=== PATIENT | female | born 1960 | race Caucasian/White ===

== ENCOUNTER 2016-06-01 11:02 | Inpatient (IN) | payer MEDICAID, OTHER ==
[~2016-06-01] VITALS: Ht 134.6 cm; Wt 92.0 kg
[~2016-06-01 11:02] MED LIST: ASPI1TAB PO; ATOR1TAB21 PO; BUPIVACAINE/EPIN 0.25% 30 ML VIAL As Ordered ONE; DEPA1TAB3 PO; DIVA125C5 PO; FERR325T3 PO; GLIP-162 PO; GLIP5TAB8 PO; IRON65TA PO; LOSA25TA8 PO; META0.52 PO; METF-415 PO; METF1000 PO; METO25TAB PO; MIRA3350 PO; PLAV75TA38 PO; VITA-121 PO; VITA-130 PO; VITA50003 PO; ZANA4TAB PO; ZONI50CA3 PO; ceFAZolin 1GM INJ (J0690) As Ordered ONE
[2016-06-01] MEDS ORDERED: LR 1,000 ML IV SCH ×2 (11:45→15:45)
[2016-06-01] MEDS ORDERED: BUPIVACAINE/EPIN 0.25% 30 ML VIAL XX ONE (11:50)
[2016-06-01] MEDS ORDERED: ceFAZolin 1GM INJ (J0690) XX ONE (11:50)
[2016-06-01] MEDS ORDERED: PROPOFOL 200 MG/20 ML VIAL As Ordered ONE ×2 (11:55→14:37)
[2016-06-01] MEDS ORDERED: LIDOCAINE 2% INJ 100 MG/5 ML SDV (FOR ANES.) As Ordered ONE (11:55)
[2016-06-01] MEDS ORDERED: MIDAZOLAM INJ 2 MG/2 ML VIAL (J2250) As Ordered ONE (12:44)
[2016-06-01] MEDS ORDERED: fentaNYL 100 MCG/2 ML INJECTION (J3010) As Ordered ONE (12:44)
[2016-06-01] MEDS ORDERED: PHENYLephrine HCL 500 MCG/5 ML (100MCG/ML) SYRINGE (J2370) As Ordered ONE (14:10)
[2016-06-01] MEDS ORDERED: ePHEDrine SULFATE 25 MG/5 ML(5MG/ML) SYRINGE As Ordered ONE (14:10)
[2016-06-01] MEDS ORDERED: ONDANSETRON 4MG/2ML VIAL (J2405) As Ordered ONE (14:19)
[2016-06-01] MEDS ORDERED: ONDANSETRON 4MG/2ML VIAL (J2405) IV PRN (15:45)
[2016-06-01] MEDS ORDERED: fentaNYL 100 MCG/2 ML INJECTION (J3010) IV PRN (15:45)
[2016-06-01] MEDS ORDERED: PERCOCET 5MG/325MG TAB As Ordered ONE (16:19)
[2016-06-01] MEDS ORDERED: PERCOCET 5MG/325MG TAB PO PRN (16:30)
[2016-06-01] MEDS ORDERED: PROMETHAZINE INJ 25 MG/ML VIAL (J2550) IV PRN (16:30)
--- NOTE | 2016-06-01 16:38 | REP ---
Partial right ankle series: Four views. Intraoperative. History: Fracture. 8 seconds of fluoroscopy time is reported. Findings: A sequence of four fluoroscopically obtained intraprocedural spot radiographs of the right ankle document screw plate fixation of the distal fibular fracture. Ankle mortise appears intact. Signed by Juaquin Shaver MD 06/01/2016 05:37 P
[2016-06-01 17:00] VITALS: BP 143/79
[2016-06-01 17:30] VITALS: BP 126/82
[2016-06-01] MEDS ORDERED: metFORMIN (GLUCOPHAGE) 500 MG TAB PO SCH (18:00)
[2016-06-01] MEDS: D5W/LR 1,000 ML IV SCH (18:08)
[2016-06-01] MEDS: HYDROmorphone HCL 1 MG/ML SYRINGE (J1170) IV PRN ×2 (18:08→22:28)
[2016-06-01 18:30] VITALS: BP 137/66
[2016-06-01 19:30] VITALS: BP 120/75
[2016-06-01 20:30] VITALS: BP 118/67
[2016-06-01] MEDS ORDERED: GLIP-162 PO (20:33)
[2016-06-01] MEDS ORDERED: NAME5TAB13 PO (20:35)
[2016-06-01] MEDS ORDERED: SIMVASTATIN 10 MG TAB PO SCH (21:00)
[2016-06-01] MEDS ORDERED: glipiZIDE *XL* 2.5MG TABLET PO SCH (21:00)
[2016-06-01] MEDS: METOPROLOL TART 25 MG TABLET PO SCH (21:02)
[2016-06-01] MEDS: PERCOCET 5MG/325MG TAB PO PRN (21:03)
[2016-06-01 21:30] VITALS: BP 120/68
[2016-06-01] MEDS ORDERED: LOVA20TA2 PO (21:41)
--- NOTE | 2016-06-01 23:24 | RO ---
DATE OF PROCEDURE: 06/01/2016 PREOPERATIVE DIAGNOSIS: Right fibula fracture with wide mortise. POSTOPERATIVE DIAGNOSIS: Right fibula fracture with wide mortise. PROCEDURE PERFORMED: Open reduction internal fixation of right fibula fracture. SURGEON: Dr. John Galeana ANESTHESIA: Spinal. ESTIMATED BLOOD LOSS: Less than 50 mL. No tourniquet was inflated COMPLICATIONS: None. COMPONENTS USED: Include Synthes one-third tubular plate with appropriate cortical and cancellus screws, 7-hole plate utilized. INDICATIONS: Bia is a 55-year-old female who had an ankle fracture approximately 1 month ago. The mortise was not appreciated to be widened in the office. However, the patient did indicate that she stumbled hard on the ankle about a week after being seen and had very severe pain. When she presented for her followup visit, we did appreciate a significantly widened mortise and elected for operative fixation, therefore, of the fibula fracture and evaluation of the syndesmotic ligament intraoperatively. Consent reviewed in detail with the patient including a michelle discussion of the procedure proposed, alternatives including doing nothing, the risks including, but not limited to, pain, failure, stiffness, infection, need for more surgery, arthritis and other issues. The patient agreed to proceed. DESCRIPTION OF PROCEDURE: Identified in the holding area, site, side verified, brought to the operating room. Once anesthesia was administered, prepped and draped in the usual fashion for exposure of the right lower extremity. Tourniquet was not inflated for this case. Incision was outlined with a marking pen over the fibula, infiltrated with 0.25% Marcaine with epinephrine. 12 cm incision was made with a 10 blade knife, developed down through skin and subcuticular tissues to the lateral aspect of the fibula. The fracture was exposed. I utilized C-arm and placed the ankle under stress and the fracture was still mobile at that point and the mortise was quite unstable at that point. Next, I was able to reduce the mortise. Next, I opened the fracture with a panchal elevator, and this allowed curetting of the fracture edges and irrigation. Next, the fracture was anatomically reduced using the lobster claw reduction clamps. I selected the 7-hole one-third tubular plate and this was installed proximally with cortical screws and distally using cancellous screws in a triangular orientation. Next, once that was accomplished, I did place the ankle through stress and the mortise seemed to be stable under stress views. The syndesmosis did not open under stress views. Next, irrigation was accomplished. The wound was closed with interrupted buried stitch and radha. Sterile dressing applied, cast applied, patient moved to the recovery room in good condition.
[2016-06-02 01:30] VITALS: BP 131/75
[2016-06-02] MEDS: PERCOCET 5MG/325MG TAB PO PRN ×5 (02:05→22:48)
[2016-06-02] MEDS: D5W/LR 1,000 ML IV SCH ×3 (02:08→22:57)
[2016-06-02] MEDS ORDERED: PERC5TAB6 PO (05:49)
[2016-06-02] MEDS ORDERED: ASPI325T PO (05:49)
[2016-06-02 06:00] VITALS: BP 110/63
[2016-06-02] MEDS: METOPROLOL TART 25 MG TABLET PO SCH ×2 (08:37→19:51)
[2016-06-02] MEDS: ASPIRIN 81 MG CHEW TABLET PO SCH (08:37)
[2016-06-02] MEDS: DIVALPROEX 500 MG TAB PO SCH (08:38)
[2016-06-02] MEDS ORDERED: MEMANTINE 5MG TABLET (NAMENDA) PO SCH (09:00)
--- NOTE | 2016-06-02 09:28 | REP ---
Right ankle series: Four views. History: Check placement. Comparison right ankle radiographs are from April 27, 2016. Findings: A screw plate fixation device is seen in the distal fibula. Ankle mortise is intact. Alignment is normal. Heel spurs are noted and there is overlying soft tissue swelling. Lateral skin radha are noted. Today's views are obtained through overlying cast material. Impression: Status post open reduction internal fixation right ankle. Signed by Juaquin Shaver MD 06/02/2016 10:30 A
[2016-06-02 10:00] VITALS: BP 107/62
[2016-06-02 14:00] VITALS: BP 110/73
[2016-06-02] MEDS: HYDROmorphone HCL 1 MG/ML SYRINGE (J1170) IV PRN (17:52)
[2016-06-02 18:00] VITALS: BP 117/62
[2016-06-02 22:00] VITALS: BP 149/78
[2016-06-02] MEDS ORDERED: diphenhydrAMINE 25 MG CAP PO PRN (23:00)
[2016-06-03 06:00] VITALS: BP 125/59
[2016-06-03] MEDS: ASPIRIN 81 MG CHEW TABLET PO SCH (08:14)
[2016-06-03] MEDS: DIVALPROEX 500 MG TAB PO SCH (08:14)
[2016-06-03 08:15] VITALS: BP 125/59
[2016-06-03] MEDS: METOPROLOL TART 25 MG TABLET PO SCH (08:15)
[2016-06-03] MEDS: PERCOCET 5MG/325MG TAB PO PRN ×2 (08:15→12:21)
--- NOTE | 2016-06-08 16:20 | DSES ---
DATE OF ADMISSION: 06/02/2016 DATE OF DISCHARGE: 06/03/2016 ADMITTING DIAGNOSIS: Right fibula fracture with widened mortise. OTHER DIAGNOSES: 1. Diabetes. 2. Hyperlipidemia. 3. Hypertension. 4. Migraines. 5. Aneurysm. DISCHARGE DIAGNOSIS: Open reduction internal fixation of a right fibula fracture. HISTORY OF PRESENT ILLNESS: The patient is a pleasant female who sustained a right-sided fibula fracture approximately one month ago. At initial visit in office, she did not seem to have a widened mortise but states that a week after initial injury she reinjured ankle. Subsequent x-rays did show the right fibula fracture with a widened mortise. The patient has consented for open reduction internal fixation with Dr. Galeana. She was admitted on the day of surgery for this elective procedure. OPERATION PERFORMED: Open reduction internal fixation of a right fibula fracture. HOSPITAL COURSE: The patient underwent an open reduction internal fixation of a right fibula fracture under spinal anesthesia. Surgery was uneventful and her hospital course was without complication. She will continue her preoperative medications and diet. She will be nonweightbearing. The patient will followup in our office in 10-14 days for a cast removal, wound check, and staple removal. She is encouraged to contact our office sooner if there is any increased pain, drainage, numbness and tingling in her extremities, fever greater than 101 degrees, or any other concerns. Please see the medical record for further details.
== END 2016-06-03 13:05 | disposition home or self-care (01) | DRG 313 ==
LOC: M SDC 11:02 → M MS5PR 16:55 → M SDC 06-02 15:40 → M MS5PR 06-03 09:05
PROVIDERS: ADMIT Orthopaedic Surgery; ATTEND Orthopaedic Surgery
PROC: 0QSJ04Z Reposition Right Fibula with Internal Fixation Device, Open Approach (ICD-10-PCS; principal; 2016-06-01 17:15)
DX: S82.831A Other fracture of upper and lower end of right fibula, initial encounter for closed fracture (principal); I10 Essential (primary) hypertension; E11.9 Type 2 diabetes mellitus without complications; E78.5 Hyperlipidemia, unspecified; G43.909 Migraine, unspecified, not intractable, without status migrainosus; Z79.84 Long term (current) use of oral hypoglycemic drugs; Z79.82 Long term (current) use of aspirin; X58.XXXA Exposure to other specified factors, initial encounter; Y92.9 Unspecified place or not applicable; Y93.9 Activity, unspecified; Y99.9 Unspecified external cause status; Z79.899 Other long term (current) drug therapy

== ENCOUNTER → 2016-06-11 | Outpatient (REF) | payer OTHER ==
[~2016-06-11] MED LIST changes: +ASPI325T PO; -BUPIVACAINE/EPIN 0.25% 30 ML VIAL As Ordered ONE; +LOVA20TA2 PO; +NAME5TAB13 PO; +PERC5TAB6 PO; -ceFAZolin 1GM INJ (J0690) As Ordered ONE
[2016-06-11 13:52] LABS: FERRITIN 173 NG/ML (8-252); PERCENT SATURATION 14.4 % (13.2-37.4); TOTAL IRON BINDING CAPACITY 333 UG/DL (250-450); TOTAL PROTEIN 7.4 GM/DL (6.4-8.2)
[2016-06-15 11:18] LABS: ALBUMIN 4.23 GM/DL (3.29-5.55); ALBUMIN % 57.2 % (55.8-66.1); GAMMA GLOBULIN % 9.4 % (11.1-18.8)
== END | disposition home or self-care (01) ==
LOC: M LAB REF 12:53
PROVIDERS: ATTEND Internal Medicine Medical Oncology
DX: D50.9 Iron deficiency anemia, unspecified (principal)

== ENCOUNTER → 2016-08-16 | Outpatient (REF) | payer OTHER, MEDICARE, MEDICAID ==
[2016-08-16 15:39] LABS: BASO % 0.5 % (0.0-1.0); EOS # 0.2 K/mm3 (0.0-0.50); EOS % 2.6 % (0.0-3.0); LARGE UNSTAINED CELL # 0.2 K/mm3 (0.0-0.4); LYMPH # 3.3 K/mm3 (1.5-4.5); LYMPH % 35.2 % (24.0-44.0); MEAN CORPUSCULAR HEMOGLOBIN 29.4 pg (27.0-33.0); MEAN CORPUSCULAR VOLUME 89.1 fl (80.0-96.0); MONO # 0.5 K/mm3 (0.0-0.8); MONO % 5.8 % (0.0-5.0); NEUTROPHILS % 53.9 % (36.0-66.0); PLATELET COUNT, AUTOMATED 288 k/mm3 (150-450); WHITE BLOOD COUNT 9.2 K/mm3 (4.0-10.0)
== END ==
LOC: M LABDRAW1 15:22
PROVIDERS: ATTEND Orthopaedic Surgery
DX: S82.61XD Displaced fracture of lateral malleolus of right fibula, subsequent encounter for closed fracture with routine healing (principal)

== ENCOUNTER → 2016-08-16 | Outpatient (CLI) | payer OTHER, MEDICARE, MEDICAID ==
[2016-08-16 12:20] LABS: BASO % 0.4 % (0.0-1.0); EOS # 0.2 K/mm3 (0.0-0.50); EOS % 2.2 % (0.0-3.0); LARGE UNSTAINED CELL # 0.1 K/mm3 (0.0-0.4); LARGE UNSTAINED CELL % 1.5 % (0.0-4.0); LYMPH # 2.5 K/mm3 (1.5-4.5); LYMPH % 31.3 % (24.0-44.0); MEAN CORPUSCULAR HGB CONC 32.5 g/dl (32.0-36.5); MONO # 0.5 K/mm3 (0.0-0.8); MONO % 5.7 % (0.0-5.0); NEUTROPHILS # 4.7 K/mm3 (1.8-7.7); NEUTROPHILS % 58.8 % (36.0-66.0); PLATELET COUNT, AUTOMATED 270 k/mm3 (150-450); RED CELL DISTRIBUTION WIDTH 13.1 % (11.5-14.5); WHITE BLOOD COUNT 7.9 K/mm3 (4.0-10.0)
[2016-08-16 12:40] LABS: ALBUMIN 3.6 GM/DL (3.2-5.2); ALKALINE PHOSPHATASE 89 U/L (45-117); ALT/SGPT 18 U/L (12-78); ANION GAP 8 MEQ/L (8-16); AST/SGOT 12 U/L (15-37); BILIRUBIN,TOTAL 0.3 MG/DL (0.2-1.0); BLOOD UREA NITROGEN 4 MG/DL (7-18); CALCIUM LEVEL 8.8 MG/DL (8.5-10.1); CARBON DIOXIDE LEVEL 32 MEQ/L (21-32); CHLORIDE LEVEL 96 MEQ/L (98-107); CREATININE FOR GFR 0.57 MG/DL (0.55-1.02); GLOMERULAR FILTRATION RATE > 60.0 (>51); GLUCOSE, FASTING 116 MG/DL (70-105); SODIUM LEVEL 136 MEQ/L (136-145); TOTAL PROTEIN 7.2 GM/DL (6.4-8.2)
== END ==
LOC: M LAB 11:27
PROVIDERS: ATTEND Psychiatry & Neurology Neurology
DX: G43.909 Migraine, unspecified, not intractable, without status migrainosus (principal); M54.5 Low back pain

== ENCOUNTER → 2018-09-21 | Outpatient (CLI) | payer MEDICARE, MEDICAID ==
[~2018-09-21] MED LIST changes: +ASPI-1 PO; -ASPI1TAB PO; -ASPI325T PO; +ASPI81TA26 PO; -DIVA125C5 PO; +DIVA1CAP PO; +ISOVUE-370 76% 100ML VIAL (Q9967) As Ordered ONE; +LOSA25TA14 PO; -LOSA25TA8 PO; -METF1000 PO; +METF10004 PO; +METO1TAB63 PO; -METO25TAB PO; +PERC5TAB12 PO; -PERC5TAB6 PO; +PLAV1TAB2 PO; -PLAV75TA38 PO; -VITA-130 PO; -VITA50003 PO; +VITA50005 PO; +VITA500T PO
--- NOTE | 2018-09-21 10:43 | REP ---
MAXILLOFACIAL CT WITHOUT CONTRAST: HISTORY: Pharynx neoplasm. A left Enma cell is present. The sinuses are clear. The osteomeatal units are patent. The middle and inferior nasal turbinates are partially paradoxical. There is annie bullosa of the left middle turbinate. There is moderate deviation of the nasal septum to the right. A spur is present arising from the left side of the nasal septum. The spur abuts the left inferior turbinate. The cribriform plate, medial luna of the orbits and optic canals are intact. There aeration of the left anterior clinoid process. The carotid canals form a segment of the posterolateral luna of the sphenoid sinus. The sphenoid sinus septa insert into the internal carotid canal luna. IMPRESSION:There is no acute or chronic sinusitis. Electronically Signed by Frankie Real MD 09/21/2018 11:03 A
--- NOTE | 2018-09-21 10:45 | REP ---
CT NECK WITH CONTRAST: HISTORY: Pharynx neoplasm. CONTRAST: Isovue-370, 75 mL. The naso-, aroldo-, and hypopharynx, larynx and subglottic trachea are normal in appearance. The salivary and thyroid glands are normal in size and density. Small lymph nodes less than 1 cm in size are present in the internal jugular chains, posterior triangles and submandibular areas. Atherosclerotic calcification is present at the carotid bifurcations. Degenerative change is present in the cervical spine. The lung apices are clear. The visualized sinuses are clear. IMPRESSION:There is no neck mass or adenopathy. Electronically Signed by Frankie Real MD 09/21/2018 11:00 A
== END ==
LOC: M RAD 09:36
PROVIDERS: ATTEND Otolaryngology
DX: J34.2 Deviated nasal septum (principal); D37.05 Neoplasm of uncertain behavior of pharynx
CPT/HCPCS: 70486; 70491; Q9967

== ENCOUNTER → 2019-01-03 | Outpatient (REF) | payer MEDICARE, MEDICAID ==
[~2019-01-03] MED LIST changes: -ISOVUE-370 76% 100ML VIAL (Q9967) As Ordered ONE; +ZONI50CA11 PO; -ZONI50CA3 PO
== END ==
LOC: M LAB LCGH 13:43
PROVIDERS: ATTEND Physician Assistant
DX: Z01.419 Encounter for gynecological examination (general) (routine) without abnormal findings (principal)

== ENCOUNTER → 2019-01-09 | Outpatient (REF) | payer MEDICARE, MEDICAID ==
[~2019-01-09] MED LIST changes: -ZONI50CA11 PO; +ZONI50CA3 PO
[2019-01-09 18:44] LABS: ALBUMIN 3.5 GM/DL (3.2-5.2); ALT/SGPT 14 U/L (12-78); BILIRUBIN,TOTAL 0.5 MG/DL (0.2-1.0); BLOOD UREA NITROGEN 9 MG/DL (7-18); CARBON DIOXIDE LEVEL 28 MEQ/L (21-32); CHLORIDE LEVEL 93 MEQ/L (98-107); CREATININE FOR GFR 0.65 MG/DL (0.55-1.30); GLOMERULAR FILTRATION RATE > 60.0 (>51); GLUCOSE, FASTING 137 MG/DL (70-100); POTASSIUM SERUM 3.4 MEQ/L (3.5-5.1); SODIUM LEVEL 132 MEQ/L (136-145); TOTAL PROTEIN 6.9 GM/DL (6.4-8.2); VALPROIC ACID (DEPAKOTE) 105.1 UG/ML (50.0-100.0)
[2019-01-09 18:57] LABS: BASO % 0.4 % (0.0-1.0); EOS # 0.2 10^3/uL (0.0-0.5); EOS % 2.9 % (0.0-3.0); HEMATOCRIT 38.4 % (36.0-47.0); HEMOGLOBIN 12.6 g/dl (12.0-15.5); LYMPH # 1.4 10^3/uL (1.5-5.0); LYMPH % 18.1 % (24.0-44.0); MEAN CORPUSCULAR HEMOGLOBIN 29.4 pg (27.0-33.0); MEAN CORPUSCULAR HGB CONC 32.8 g/dl (32.0-36.5); MEAN CORPUSCULAR VOLUME 89.7 fl (80.0-96.0); MONO # 0.6 10^3/uL (0.0-0.8); MONO % 7.7 % (0.0-5.0); NEUTROPHILS # 5.2 10^3/uL (1.5-8.5); NEUTROPHILS % 69.8 % (36.0-66.0); PLATELET COUNT, AUTOMATED 236 10^3/uL (150-450); RED BLOOD COUNT 4.28 10^6/uL (4.00-5.40); WHITE BLOOD COUNT 7.5 10^3/uL (4.0-10.0)
== END ==
LOC: M LABNEURO 14:42
PROVIDERS: ATTEND Psychiatry & Neurology Neurology
DX: R42 Dizziness and giddiness (principal); G43.909 Migraine, unspecified, not intractable, without status migrainosus

== ENCOUNTER → 2022-03-03 | Outpatient (CLI) | payer MEDICARE, MEDICAID ==
[~2022-03-03] MED LIST changes: +CLOP75TA99 PO; +DIVA125C6 PO; -DIVA1CAP PO; +ECOT81TA5 PO; +EZET10TA21; +FLON1SPR NARES; +ISOS1TAB36; +JANU100T; +JARD1TAB; +LEVO88TA3; +LISI5TAB11; +LIVA2TAB; +LOSA25TA13 PO; -LOSA25TA14 PO; +MEMA28CA12; +OMEP40CA5; -PLAV1TAB2 PO; +VITA-243 PO; +VITA100093 PO; -VITA500T PO; +ZOLO100T; +ZONI50CA11 PO; -ZONI50CA3 PO
== END ==
LOC: M LABSMTC 11:04
PROVIDERS: ATTEND Anesthesiology
DX: Z01.818 Encounter for other preprocedural examination (principal); Z11.52 Encounter for screening for COVID-19

== ENCOUNTER 2022-03-08 06:38 | Day surgery (SDC) | payer MEDICARE, MEDICAID ==
[~2022-03-08] VITALS: Ht 157.5 cm; Wt 90.3 kg
[~2022-03-08 06:38] MED LIST changes: +NS 1,000 ML IV ONE
[2022-03-08] MEDS ORDERED: fentaNYL 100 MCG/2 ML INJECTION As Ordered ONE (07:31)
[2022-03-08] MEDS ORDERED: LIDOCAINE 2% 100MG/5ML SDV (FOR ANES.) As Ordered ONE (07:32)
[2022-03-08] MEDS ORDERED: propofoL 200 MG/20 ML VIAL As Ordered ONE (07:32)
[2022-03-08 08:54] VITALS: BP 146/72
== END 2022-03-08 08:49 | disposition home or self-care (01) ==
LOC: M OPP 06:38
PROVIDERS: ATTEND Internal Medicine Gastroenterology
DX: Z12.11 Encounter for screening for malignant neoplasm of colon (principal); D12.0 Benign neoplasm of cecum; D12.2 Benign neoplasm of ascending colon; D12.3 Benign neoplasm of transverse colon; K64.4 Residual hemorrhoidal skin tags; K64.8 Other hemorrhoids; K57.30 Diverticulosis of large intestine without perforation or abscess without bleeding; K22.89 Other specified disease of esophagus; I85.11 Secondary esophageal varices with bleeding; K31.89 Other diseases of stomach and duodenum; K74.60 Unspecified cirrhosis of liver; Z79.02 Long term (current) use of antithrombotics/antiplatelets; Z79.84 Long term (current) use of oral hypoglycemic drugs; Z79.899 Other long term (current) drug therapy; E03.9 Hypothyroidism, unspecified; E11.9 Type 2 diabetes mellitus without complications; K44.9 Diaphragmatic hernia without obstruction or gangrene; G47.30 Sleep apnea, unspecified; Z99.89 Dependence on other enabling machines and devices
CPT/HCPCS: 43239; 45385; 88305; J3010

== ENCOUNTER → 2022-03-18 | Outpatient (CLI) | payer MEDICARE, MEDICAID ==
[~2022-03-18] MED LIST changes: -NS 1,000 ML IV ONE
== END ==
LOC: M RAD 09:26
PROVIDERS: ATTEND Internal Medicine Gastroenterology
DX: K74.60 Unspecified cirrhosis of liver (principal)

== ENCOUNTER → 2024-08-15 | Outpatient (REF) | payer MEDICARE, MEDICAID ==
[~2024-08-15] MED LIST changes: +GLIP5TAB17 PO; -GLIP5TAB8 PO
[2024-08-15 18:18] LABS: APPEARANCE, URINE HAZY (CLEAR); BACTERIA, URINE AUTO NEGATIVE (NEGATIVE); BILIRUBIN, URINE AUTO NEGATIVE (NEGATIVE); BLOOD, URINE BLOOD 2+ (NEGATIVE); COLOR, URINE YELLOW (YELLOW); GLUCOSE, URINE (UA) AUTO NEGATIVE (NEGATIVE); KETONE, URINE AUTO NEGATIVE (NEGATIVE); LEUKOCYTE ESTERASE, URINE AUTO 1+ (NEGATIVE); MUCUS, URINE SMALL (NEGATIVE); NITRITE, URINE AUTO NEGATIVE (NEGATIVE); PROTEIN, URINE AUTO NEGATIVE (NEGATIVE); RBC, URINE AUTO 53 /HPF (0-3); SPECIFIC GRAVITY URINE AUTO 1.025 (1.002-1.035); SQUAMOUS EPITHELIAL CELL UR AU 0 /HPF (0-6); WBC, URINE AUTO 4 /HPF (0-3)
[2024-08-17 08:21] LABS: BVAB 2 NEGATIVE (NEGATIVE); CANDIDA ALBICANS NAA NOT DETECTED (NOT DETECTED); CANDIDA GLABRATA NAA NOT DETECTED (NOT DETECTED); TRICH VAG BY NAA NOT DETECTED (NOT DETECTED)
[2024-08-17 11:37] LABS: CHLAMYDIA TRACHOMATIS NAA NOT DETECTED (NOT DETECTED); Neisseria gonorrhoeae NAA NOT DETECTED (NOT DETECTED)
== END ==
LOC: M SMT 16:45
PROVIDERS: ATTEND Specialist
DX: N89.8 Other specified noninflammatory disorders of vagina (principal)

== ENCOUNTER → 2024-09-05 | Outpatient (REF) | payer MEDICARE, MEDICAID | LOC: M LAB REF 15:02 | PROVIDERS: ATTEND Physician Assistant Medical | DX: R19.4 Change in bowel habit (principal) ==

== ENCOUNTER 2024-12-07 11:16 | Emergency (ER) | payer MEDICARE, MEDICAID ==
[~2024-12-07] VITALS: Ht 157.5 cm; Wt 98.4 kg
[~2024-12-07 11:16] MED LIST changes: +ACET-897 PO; +CYAN100017 SC; +DONE10TA90 PO; +EZET10TA21 PO; -ISOS1TAB36; +ISOS1TAB36 PO; +LEVO75TA4 PO; -MEMA28CA12; +MEMA28CA12 PO; +METO1TAB32 PO; -OMEP40CA5; +OMEP40CA5 PO; +REPA140I2 SC; +SERT50TA29 PO; +SITA50TAB PO; +SYMB80INH INH; +TIZA10TA PO
[2024-12-07 12:24] LABS: KETONE, URINE AUTO RFX NEGATIVE (NEGATIVE); MUCUS, URINE RFX SMALL (NEGATIVE); NITRITE, URINE AUTO RFX NEGATIVE (NEGATIVE); RBC, URINE AUTO RFX 1 /HPF (0-3); SQUAM EPITHELIAL CELL UR AURFX 2 /HPF (0-6); WBC, URINE AUTO RFX 6 /HPF (0-3)
[2024-12-07 12:25] LABS: LEUKOCYTE ESTERASE UR AUTO RFX TRACE (NEGATIVE)
[2024-12-07] MEDS: NS (Normal Saline) 0.9% 1,000 ML IV ONE (13:04)
[2024-12-07] MEDS: ACETAMINOPHEN *IV* 1,000 MG in IV 1 EA IV ONE (13:04)
[2024-12-07] MEDS: ONDANSETRON 4MG 2ML VIAL IV ONE (13:04)
[2024-12-07 13:14] LABS: BASO # 0.0 10^3/uL (0.0-0.2); BASO % 0.4 % (0.0-1.0); EOS # 0.2 10^3/uL (0.0-0.5); EOS % 3.0 % (0.0-3.0); LYMPH # 2.0 10^3/uL (1.5-5.0); LYMPH % 25.7 % (24.0-44.0); MONO # 0.6 10^3/uL (0.0-0.8); MONO % 7.8 % (2.0-8.0); NEUTROPHILS # 5.0 10^3/uL (1.5-8.5); NEUTROPHILS % 62.7 % (36.0-66.0); PLATELET COUNT, AUTOMATED 158 10^3/uL (150-450)
[2024-12-07 13:55] LABS: ALT/SGPT 20.0 U/L (7.0-40); AST/SGOT 24.0 U/L (<34)
[2024-12-07] MEDS ORDERED: ISOVUE-370 76% 100 ML VIAL As Ordered ONE (15:02)
[2024-12-07] MEDS: KETOROLAC 30 MG/ML 1 ML VIAL IV ONE (15:39)
[2024-12-07 16:56] VITALS: BP 134/65; TEMP 97.6; O2SAT 97
== END 2024-12-07 17:04 | disposition home or self-care (01) ==
LOC: M ED 11:16
DX: K52.9 Noninfective gastroenteritis and colitis, unspecified (principal); R10.9 Unspecified abdominal pain; E11.9 Type 2 diabetes mellitus without complications; I10 Essential (primary) hypertension; J45.909 Unspecified asthma, uncomplicated; Z86.73 Personal history of transient ischemic attack (TIA), and cerebral infarction without residual deficits; Z88.2 Allergy status to sulfonamides; Z88.6 Allergy status to analgesic agent; Z88.5 Allergy status to narcotic agent; Z79.1 Long term (current) use of non-steroidal anti-inflammatories (NSAID); Z79.899 Other long term (current) drug therapy
CPT/HCPCS: 74177; 80047; 80076; 81001; 83605; 83690; 85025; 87040; 87086; 93041; 96365; 96366; 96375; 99284; J0131; J1885; J2405; Q9967

== ENCOUNTER → 2025-01-16 | Outpatient (CLI) | payer MEDICARE, MEDICAID ==
[~2025-01-16] MED LIST changes: -EZET10TA21; -EZET10TA21 PO; +EZET10TA57; +EZET10TA57 PO
== END ==
LOC: M LAB 12:05
PROVIDERS: ATTEND Internal Medicine Gastroenterology
DX: K74.00 Hepatic fibrosis, unspecified (principal)